=== PATIENT | male | born 1955 | race Caucasian/White ===

== ENCOUNTER 2020-09-15 07:21 | Outpatient (CLI) | payer BC, SELFPAY ==
--- NOTE | ~2020-09-15 | US_ITS ---
EXAMINATION: US abdomen complete EXAM DATE: 09/15/2020 08:37 INDICATION: Leukopenia. TECHNIQUE: Multiple grayscale and Doppler images of the complete abdomen were obtained (by a technolo gist who performed the scan) and subsequently reviewed. There is no prior study for comparison. FINDINGS: The abdominal aorta is normal in caliber. Visualized portion IVC is patent. The pancreatic head a nd body are normal in appearance. The pancreatic tail is not visualized. The liver has normal echogenicity and contour. There are no focal liver lesions identified. There is no evidence of intrahepatic biliary duct dilation. Portal venous flow was seen in the hepatopedal , normal direction and has normal Doppler waveform. Common bile duct measures 5 mm, which is normal. The gallbladder wall is normal in thickness, with ex pected amount of distention. No sonographic evidence of pericholecystic fluid. There is no cholelit hiases. Technologist performing exam reports patient did not demonstrate sonographic Mixon's sign. Please note that this sign is less reliable in patients who have received pain medication. Right kidney: There is normal contour and echogenicity. It measures 13.5 x 5.0 x 5.8 centimeters. T here is 6 mm cyst. There is no hydronephrosis. Left kidney: There is normal contour and echogenicity. It measures 15.0 x 4.7 x 6.7 centimeters. T here are no focal renal lesions identified. There is no hydronephrosis. The spleen measures 11 centimeters and is morphologically normal. IMPRESSION: 1. Unremarkable complete abdominal ultrasound exam. Reviewed, dictated and finalized at location B.
== END 2020-09-15 07:22 | disposition home or self-care (01) ==
LOC: ANHIMG 07:25
PROVIDERS: PCP Internal Medicine; Visit Provider Internal Medicine Hematology & Oncology
DX: D72.819 Decreased white blood cell count, unspecified (principal)
CPT/HCPCS: 76700

== ENCOUNTER 2021-04-20 13:31 | Outpatient (CLI) | payer BC, SELFPAY ==
[2021-04-20 13:44] LABS: Basophils Absolute Auto 0.1 K/mm3 (0.0-0.1); Basophils Percent Auto 1.9 % (0.2-1.2); Eosinophils Absolute Auto 0.2 K/mm3 (0-0.3); Eosinophils Percent Auto 5.9 % (0-4.4); Hemoglobin 14.5 g/dL (14.0-18.0); Immature Granulocyte Absolute 0.01 K/mm3 (0.00-0.031); Immature Granulocyte Percent A 0.3 % (0-0.5); Lymphocytes Absolute Auto 1.06 K/mm3 (0.9-3.2); Lymphocytes Percent Auto 28.4 % (18.3-44.2); Mean Corpuscular Hemoglobin 33.6 pg (26-34); Mean Corpuscular Volume 102.1 fl (80-100); Mean Platelet Volume 10.5 fl (7.4-10.4); Monocytes Absolute Auto 0.5 K/mm3 (0.1-0.6); Monocytes Percent Auto 12.6 % (2.6-8.5); Neutrophils Absolute Auto 1.9 K/mm3 (1.3-6.7); Neutrophils Percent Auto 50.9 % (45.5-73.1); Platelet Count Result 227 k/mm3 (150-375); Red Blood Count 4.31 M/mm3 (4.6-6.20); Red Cell Distribution Width 12.5 % (11.5-14.5); White Blood Count 3.7 K/mm3 (4.5-10.0)
== END 2021-04-20 13:32 | disposition home or self-care (01) ==
LOC: ANHLAB 13:32
PROVIDERS: PCP Internal Medicine; Visit Provider Internal Medicine Hematology & Oncology
DX: D72.819 Decreased white blood cell count, unspecified (principal)
CPT/HCPCS: 36415; 85025

== ENCOUNTER 2021-07-11 11:02 | Emergency (ER) | payer BC, SELFPAY ==
--- NOTE | ~2021-07-11 | CT_ITS ---
EXAMINATION: CT abdomen pelvis w con DATE: 07/11/2021 12:50 INDICATION: Right abdominal pain. TECHNIQUE: Computed tomography (CT) of the abdomen and pelvis was performed with 75 mL Omnipaque 300 intravenous contrast. Automated exposure control and iterative reconstruction technique were employed . The dose-length product was 782.86 mGy-cm. COMPARISON: CT abdomen and pelvis 09/21/2016 FINDINGS: The visualized portions of the lung bases demonstrate mild atelectasis. No pleural effusion . The heart size is normal. There are coronary artery calcifications. No pericardial effusion. The li roshan, gallbladder, spleen, and pancreas are normal. There are masses in the adrenal glands measuring u p to 2.1 cm on the left measuring soft tissue attenuation without change, likely adenomas. There is c ortical thinning of right kidney. There is a 5 mm cyst in right kidney. Left kidney is normal. There is a filter in the infrarenal inferior vena cava. The prostate is moderately enlarged. There are no d ilated loops of bowel. The appendix is normal. There are no pathologically enlarged lymph nodes. Ther e is a small volume of pelvic ascites. There is moderate thoracic spondylosis and severe lumbar spond ylosis. IMPRESSION: 1. Small volume of pelvic ascites. Reviewed, dictated and finalized at location A.
[2021-07-11 11:13] VITALS: BP 137/105; PULSE 73; RESP 16; TEMP 36.4; O2SAT 99
[2021-07-11 11:40] LABS: Basophils Absolute Auto 0.1 K/mm3 (0.0-0.1); Basophils Percent Auto 0.9 % (0.2-1.2); Eosinophils Absolute Auto 0.1 K/mm3 (0-0.3); Eosinophils Percent Auto 1.8 % (0-4.4); Hematocrit 43.4 % (42.0-52.0); Hemoglobin 14.6 g/dL (14.0-18.0); Immature Granulocyte Absolute 0.02 K/mm3 (0.00-0.031); Immature Granulocyte Percent A 0.4 % (0-0.5); Lymphocytes Absolute Auto 1.07 K/mm3 (0.9-3.2); Lymphocytes Percent Auto 19.6 % (18.3-44.2); Mean Corpuscular HGB Conc 33.6 g/dl (32-36); Mean Corpuscular Hemoglobin 33.3 pg (26-34); Mean Corpuscular Volume 99.1 fl (80-100); Mean Platelet Volume 10.7 fl (7.4-10.4); Monocytes Absolute Auto 0.6 K/mm3 (0.1-0.6); Monocytes Percent Auto 10.1 % (2.6-8.5); Neutrophils Absolute Auto 3.7 K/mm3 (1.3-6.7); Neutrophils Percent Auto 67.2 % (45.5-73.1); Platelet Count Result 221 k/mm3 (150-375); Red Blood Count 4.38 M/mm3 (4.6-6.20); White Blood Count 5.5 K/mm3 (4.5-10.0)
[2021-07-11 11:51] LABS: Alanine Aminotransferase 16 U/L (6-50); Albumin Level 4.3 g/dL (3.5-5.1); Alkaline Phosphatase 91 U/L (38-126); Anion Gap 7 mmol/L (8-16); Aspartate Amino Transferase 21 U/L (17-59); Bilirubin,Total 1.4 mg/dL (0.2-1.3); Blood Urea Nitrogen 21 mg/dL (9-20); Calcium 8.5 mg/dL (8.4-10.2); Carbon Dioxide 26 mmol/L (22-30); Chloride 101 mmol/L (98-107); Estimated CRCL calculation 110 ml/min; Estimated Glomerular Filt Rate > 60; Glucose 102 mg/dL (65-110); Lipase 70 U/L (23-300); Potassium 4.3 mmol/L (3.4-5.0); Sodium 134 mmol/L (137-145)
--- NOTE | 2021-07-11 12:20 | ED.ABDPAIN ---
HPI - Abdominal Pain General Chief Complaint: Abdominal Pain Stated Complaint: Abdominal Pain Time Seen by Provider: 07/11/21 12:19 Source: patient Mode of arrival: ambulatory Limitations: no limitations History of Present Illness HPI narrative: 65 years old white male presents with right abdominal pain that started 5 days ago, constant, worse with any movement, better if she remaining still. He denies any fever, chills, nausea, vomiting, diarrhea, radiation of pain. History of intermittent constipation, last bowel movement, and a small one this morning. History of abdominal hernia repair years ago.. History of hypertension, hypothyroidism, does not smoke or drink or uses drugs. Related Data Allergies Allergy/AdvReac Type Severity Reaction Status Date / Time heparin Allergy Unknown blood clot Verified 07/11/21 12:28 Heparin Analogues Allergy Unknown blood clot Verified 07/11/21 12:28 TIDE SOAP Allergy Intermediate HIVES Uncoded 07/11/21 12:28 Review of Systems Review of Systems: All systems reviewed & are unremarkable except as noted in HPI and below PMFSH Past Medical History Medical History Bradycardia DVT (deep venous thrombosis) 2004 Heparin induced thrombocytopenia Hypertension Hyponatremia Hypothyroidism KARAN (obstructive sleep apnea) Osteoarthritis Presence of IVC filter Pulmonary embolism 2004 Toe amputee Great toe 2004 Surgical History Surgical History History of surgical 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 gnosticist region 11/2020 Family History Family History Sibling Hypertension Mother Patient's mother is Blood clotting disorder Brain aneurysm Social History Social History Smoking status: Never smoker Smoking end date: 02/20/00 Alcohol intake: never Substance use: never Exam Narrative: General appearance: Well-developed, well-nourished Skin: Normal color Head: Normocephalic, nontraumatic Eyes: Clear conjunctiva ENT: Oropharynx normal, ears normal, nose normal Neck: Supple, nontender Chest and respiratory: Airway patent, no respiratory distress, no accessory muscle use Heart: Regular rate/rhythm Abdomen: Soft, severe tenderness epigastric and right upper quadrant. Quiet bowel sounds, positive guarding, no rebound Vascular: Normal peripheral pulses, normal capillary refill. Musculoskeletal: Normal range of motion, nontender back Neurologic: Alert and oriented ?3, [employer] is normal as tested, no gross motor deficit Course Course Emergency Course: Work-up did not show any significant finding to explain patient presentation. Physical exam showed quite a bit of tenderness in the epigastric area. CT scan showed masses right adrenal gland, likely adenomas. The plan to discharge patient on Bentyl and the Tylenol as needed, to follow-up with Dr. Rutledge within 7 days.. At the time of discharge patient reported that pt working alone with a lot of lifting and pushing. Abdominal wall muscular strain is a possibility at this time. Consultations Consultation #1: Dr. Ren Date: 07/11/21 Time: 13:41 Vital Signs Vital signs: Vital Signs Temperature 36.4 C L 07/11/21 11:13 Pulse Rate 73 07/11/21 11:13 Respiratory Rate 16 07/11/21 11:13 Blood Pressure 137/105 H 07/11/21 11:13 Pulse Oximetry 99 07/11/21 11:13 Temperature 36.4 C L 07/11/21 11:13 Pulse Rate 65 07/11/21 12:25 Respiratory Rate 20 07/11/21 12:25 Blood Pressure 147/83 H 07/11/21 1
[2021-07-11 12:25] VITALS: BP 147/83; PULSE 65; RESP 20; O2SAT 99
[2021-07-11 12:31] LABS: Add Urine Microscopic? NO; Appearance Urine Clear (Clear); Bilirubin Urine Negative (Negative); Blood Urine Negative (Negative); Color Urine Light Yellow (Yellow); Glucose Urine UA Negative (Negative); Ketones Urine Negative (Negative); Leukocyte Esterase Ur Negative LEU/UL (Negative); Nitrate Urine Negative (Negative); Protein Urine Negative (Negative); Urobilinogen Urine 0.2 mg/dL (<2.0); pH Urine 6.5 (5.0-9.0)
[2021-07-11] MEDS: SODIUM CHLORIDE 0.9% IV 1,000 ML 999 ML IV CONT (13:10)
[2021-07-11 14:06] VITALS: BP 146/80; PULSE 83; RESP 18; O2SAT 98
== END 2021-07-11 14:14 | disposition home or self-care (01) ==
PROVIDERS: Emergency Medicine; Emergency Provider Emergency Medicine; PCP Internal Medicine
DX: E27.9 Disorder of adrenal gland, unspecified (principal); R10.13 Epigastric pain; I10 Essential (primary) hypertension; E03.9 Hypothyroidism, unspecified; G47.33 Obstructive sleep apnea (adult) (pediatric); M19.90 Unspecified osteoarthritis, unspecified site; Z86.711 Personal history of pulmonary embolism; Z86.718 Personal history of other venous thrombosis and embolism; Z89.419 Acquired absence of unspecified great toe; Z87.891 Personal history of nicotine dependence; R18.8 Other ascites
CPT/HCPCS: 36415; 74177; 80053; 81003; 83690; 85025; 96360; 99284; J7030; Q9967

== ENCOUNTER 2021-09-12 01:59 | Day surgery (SDC) | payer BC, SELFPAY ==
[2021-08-31 11:20] VITALS: BMI 26.5
--- NOTE | 2021-09-11 11:43 | PM.HPGS ---
History of Present Illness History of Present Illness Consent: Risks, benefits, and alternatives have been discussed and questions answered. Patient agrees to proceed with procedure. Chief complaint: constipation, change in bowel habits, abdom. pain Narrative: Anil Mosquera is a 65 year old male Referred for colon cancer screening. He had 2 polyps removed at the time his last colonoscopy 11 years ago. He has also had difficulty lately of constipation, not noticing improvement with fiber or probiotics. Review of Systems Review of Systems: All systems reviewed & are unremarkable except as noted in HPI and below PMFSH Past Medical History Medical History Bradycardia DVT (deep venous thrombosis) 2004 Heparin induced thrombocytopenia Hypertension Hyponatremia Hypothyroidism KARAN (obstructive sleep apnea) Osteoarthritis Presence of IVC filter Pulmonary embolism 2004 Toe amputee Great toe 2004 Surgical History Surgical History History of surgical 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 episcopal region 11/2020 Family History Family History Sibling Hypertension Mother Patient's mother is Blood clotting disorder Brain aneurysm Social History Social History Smoking packs per day: 2 Smoking cigarettes per day: 40.0 Years smoked: 10 Smoking pack-years: 20.00 Smoking status: Former smoker Tobacco type: cigarettes Smoking end date: 02/20/00 Alcohol intake: never Substance use: never Substance use type: does not use Living arrangements: with family Spiritual care concerns: No Meds Home Medications and Allergies Home Medications Medication Instructions Recorded Confirmed Type amlodipine 10 mg tablet 10 mg PO DAILY #90 tabs 07/12/20 09/12/21 Rx levothyroxine 137 mcg tablet 137 mcg PO DAILY #90 tabs 02/01/21 09/12/21 Rx clonidine HCl 0.1 mg tablet 0.1 mg PO BID #180 tabs 04/13/21 09/12/21 Rx losartan 100 mg tablet 100 mg PO DAILY #90 tabs 04/18/21 09/12/21 Rx ascorbate calcium (vitamin C) 500 500 mg PO DAILY 08/15/21 09/12/21 History mg tablet glucosamine 500 mg-msm 500 1 tablet PO DAILY 08/15/21 09/12/21 History mg-Boswellia 33.3 mg-herb 182 70 mg tablet (Cosamin [place] (with Boswellia)) vitamin B complex (B 1 tablet PO DAILY 08/15/21 09/12/21 History Complex-Vitamin B12 tablet) Allergies Allergy/AdvReac Type Severity Reaction Status Date / Time heparin Allergy Unknown blood clot Verified 09/12/21 07:44 Heparin Analogues Allergy Unknown blood clot Verified 09/12/21 07:44 TIDE SOAP Allergy Intermediate HIVES Uncoded 09/12/21 07:44 Exam Resp: Auscultation: clear to auscultation bilaterally Cardio: Rate: regular rate Rhythm: regular rhythm GI: GI Palp: Yes Soft to palpation and No Tenderness to palpation present (GI) Assessment and Plan Assessment and plan (1) Colon cancer screening: Code(s): Z12.11 - Encounter for screening for malignant neoplasm of colon Status: Acute Assessment and Plan: Colonoscopy with possible biopsy or polypectomy or cautery or injection of substances.
[2021-09-12 07:51] VITALS: BP 143/104; PULSE 50; RESP 18; TEMP 36.3; O2SAT 99
--- NOTE | 2021-09-12 08:13 | WPDANESEPPF ---
Anes - Initial Pre Proc Eval Procedure: Operation Date: 09/12/21 08:30 Proposed Procedures p Colonoscopy - Rocky Rawls MD Date/Time: 09/12/21 08:13 Surgeon: Rocky Rawls MD Pre Op Diagnosis: constipation, change in bowel habits, abdom. pain Patient Data Age: 65 Gender: M Height: 1.93 m Weight: 94.7 kg Last Vital Signs Temp 36.3 C L 09/12/21 07:51 Pulse 50 L 09/12/21 07:51 Resp 18 09/12/21 07:51 BP 143/104 H 09/12/21 07:51 Pulse Ox 99 09/12/21 07:51 O2 Del Method Room Air 09/12/21 07:51 Allergies Allergy/AdvReac Type Severity Reaction Status Date / Time heparin Allergy Unknown blood clot Verified 09/12/21 07:44 Heparin Analogues Allergy Unknown blood clot Verified 09/12/21 07:44 TIDE SOAP Allergy Intermediate HIVES Uncoded 09/12/21 07:44 Home Medications Medication Instructions Recorded Confirmed Type amlodipine 10 mg tablet 10 mg PO DAILY #90 tabs 07/12/20 09/12/21 Rx levothyroxine 137 mcg tablet 137 mcg PO DAILY #90 tabs 02/01/21 09/12/21 Rx clonidine HCl 0.1 mg tablet 0.1 mg PO BID #180 tabs 04/13/21 09/12/21 Rx losartan 100 mg tablet 100 mg PO DAILY #90 tabs 04/18/21 09/12/21 Rx ascorbate calcium (vitamin C) 500 500 mg PO DAILY 08/15/21 09/12/21 History mg tablet glucosamine 500 mg-msm 500 1 tablet PO DAILY 08/15/21 09/12/21 History mg-Boswellia 33.3 mg-herb 182 70 mg tablet (Cosamin [place] (with Boswellia)) vitamin B complex (B 1 tablet PO DAILY 08/15/21 09/12/21 History Complex-Vitamin B12 tablet) Patient hx anesthesia problems: none Family hx anesthesia problems: none Results Review: All pre-operative results and documents have been reviewed as part of the pre-operative evaluation. FORMERLY [facility], [facility] Past Medical History Medical History Bradycardia DVT (deep venous thrombosis) 2005 Heparin induced thrombocytopenia Hypertension Hyponatremia Hypothyroidism KARAN (obstructive sleep apnea) Osteoarthritis Presence of IVC filter Pulmonary embolism 2005 Toe amputee Great toe 2005 Surgical History Surgical History History of surgical 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 oriental orthodox region 11/2020 Family History Family History Sibling Hypertension Mother Patient's mother is Blood clotting disorder Brain aneurysm Social History Social History Smoking packs per day: 2 Smoking cigarettes per day: 40.0 Years smoked: 10 Smoking pack-years: 20.00 Smoking status: Former smoker Tobacco type: cigarettes Smoking end date: 02/20/00 Alcohol intake: never Substance use: never Substance use type: does not use Living arrangements: with family Spiritual care concerns: No Anes - Eval Final PreProcedure Day of Procedure 09/12/21 08:13 Patient weight: normal Heart: regular rate and rhythm Lungs: clear to auscultation and normal air movement Airway: Mallampati scale class II Neurological: alert and oriented Last oral intake: >/= 8 hours ASA classification: III Emergent: no Anesthetic plan: proceed Anesthesia type and monitoring: general GIVS Results Review: All pre-operative results and documents have been reviewed as part of the pre-operative evaluation. Informed Consent: The patient's anesthetic plan and its attendant risks and benefits were discussed with the patient/family/POA. Questions were solicited and answers provided to the satisfaction of the patient/family/POA.
[2021-09-12] MEDS: LACTATED RINGERS 1,000 ML 150 ML IV CONT (08:24)
[2021-09-12 08:44] VITALS: BP 115/80; PULSE 67; RESP 20; O2SAT 98
[2021-09-12 08:54] VITALS: BP 128/76; PULSE 61; RESP 22; O2SAT 97
[2021-09-12 09:04] VITALS: BP 131/82; PULSE 60; RESP 20; O2SAT 98
== END 2021-09-12 09:10 | disposition home or self-care (01) ==
PROVIDERS: PCP Internal Medicine; Visit Provider Internal Medicine Gastroenterology
PROC: 0DJD8ZZ Inspection of Lower Intestinal Tract, Via Natural or Artificial Opening Endoscopic (ICD-10-PCS; CPT 45378; principal; 2021-09-12 08:30)
DX: Z12.11 Encounter for screening for malignant neoplasm of colon (principal); K59.00 Constipation, unspecified; R19.5 Other fecal abnormalities; R10.9 Unspecified abdominal pain; E03.9 Hypothyroidism, unspecified; Z86.718 Personal history of other venous thrombosis and embolism; I10 Essential (primary) hypertension; G47.33 Obstructive sleep apnea (adult) (pediatric); Z86.711 Personal history of pulmonary embolism; M19.90 Unspecified osteoarthritis, unspecified site; R00.1 Bradycardia, unspecified; Z87.891 Personal history of nicotine dependence; Z51.81 Encounter for therapeutic drug level monitoring; Z79.4 Long term (current) use of insulin
CPT/HCPCS: 45378; J2704; J7120

== ENCOUNTER 2022-11-03 13:53 | Outpatient (CLI) | payer BC, SELFPAY ==
--- NOTE | ~2022-11-03 | XR_ITS ---
EXAMINATION: XR chest 2V 11/03/2022 14:16 INDICATION: Syndrome of inappropriate secretion of antidiuretic hormone PROCEDURE: 2 view chest COMPARISON: 06/04/2004 FINDINGS: The lungs are clear. The cardiomediastinal silhouette is within normal limits. There are no pleural effusions. There is no pneumothorax suspected. IMPRESSION: 1: NO ACUTE CARDIOPULMONARY DISEASE. Reviewed, dictated and finalized at location B.
== END 2022-11-03 13:54 | disposition home or self-care (01) ==
PROVIDERS: PCP Internal Medicine; Visit Provider Internal Medicine
DX: E22.2 Syndrome of inappropriate secretion of antidiuretic hormone (principal)
CPT/HCPCS: 71046

== ENCOUNTER 2023-10-08 08:50 | Outpatient (CLI) | payer OTHER, SELFPAY ==
--- NOTE | ~2023-10-08 | XR_ITS ---
EXAMINATION: XR knee LT min 4V DATE: 10/08/2023 09:10 INDICATION: Left knee pain. TECHNIQUE: 4 views of left knee were obtained. COMPARISON: None. FINDINGS: There is varus angulation at the knee. No fracture. There is severe osteoarthritis of media l compartment and moderate osteoarthritis of lateral and patellofemoral compartments. No knee joint e ffusion. IMPRESSION: 1. Severe left knee osteoarthritis. Reviewed, dictated and finalized at location A.
== END 2023-10-08 08:51 ==
PROVIDERS: PCP Internal Medicine; Visit Provider Clinical Nurse Specialist
DX: M17.12 Unilateral primary osteoarthritis, left knee (principal)
CPT/HCPCS: 73564

== ENCOUNTER 2023-11-22 11:03 | Outpatient (CLI) | payer OTHER, SELFPAY ==
[2023-11-22 18:55] LABS: Basophils Absolute Auto 0.1 K/mm3 (0.0-0.1); Basophils Percent Auto 1.2 % (0.2-1.2); Eosinophils Absolute Auto 0.1 K/mm3 (0-0.3); Eosinophils Percent Auto 3.1 % (0-4.4); Hematocrit 43.5 % (42.0-52.0); Hemoglobin 14.8 g/dL (14.0-18.0); Immature Granulocyte Absolute 0.01 K/mm3 (0.00-0.031); Immature Granulocyte Percent A 0.2 % (0-0.5); Lymphocytes Absolute Auto 0.96 K/mm3 (0.9-3.2); Lymphocytes Percent Auto 22.7 % (18.3-44.2); Mean Corpuscular Hemoglobin 33.5 pg (26-34); Mean Corpuscular Volume 98.4 fl (80-100); Mean Platelet Volume 11.5 fl (7.4-10.4); Monocytes Absolute Auto 0.6 K/mm3 (0.1-0.6); Monocytes Percent Auto 14.2 % (2.6-8.5); Neutrophils Absolute Auto 2.5 K/mm3 (1.3-6.7); Neutrophils Percent Auto 58.6 % (45.5-73.1); Platelet Count Result 202 k/mm3 (150-375); Red Blood Count 4.42 M/mm3 (4.6-6.20); Red Cell Distribution Width 12.2 % (11.5-14.5); White Blood Count 4.2 K/mm3 (4.5-10.0)
[2023-11-22 19:23] LABS: Alanine Aminotransferase 20 U/L (6-50); Albumin Level 4.2 g/dL (3.5-5.1); Alkaline Phosphatase 88 U/L (38-126); Anion Gap 7 mmol/L (4-12); Aspartate Amino Transferase 30 U/L (17-59); Bilirubin,Total 1.5 mg/dL (0.2-1.3); Blood Urea Nitrogen 19 mg/dL (9-20); Carbon Dioxide 27 mmol/L (22-30); Chloride 100 mmol/L (98-107); Estimated Glomerular Filt Rate > 60; Glucose 95 mg/dL (65-110); Potassium 4.2 mmol/L (3.4-5.0); Sodium 134 mmol/L (137-145)
[2023-11-22 21:00] LABS: Free T4 Free Thyroxine 1.48 ng/mL (0.78-2.19)
== END 2023-11-22 11:04 | disposition home or self-care (01) ==
LOC: ANHGOSHLAB 11:04
PROVIDERS: PCP Internal Medicine; Visit Provider Clinical Nurse Specialist
DX: D72.819 Decreased white blood cell count, unspecified (principal); E03.9 Hypothyroidism, unspecified; E78.5 Hyperlipidemia, unspecified; I10 Essential (primary) hypertension; E87.1 Hypo-osmolality and hyponatremia
CPT/HCPCS: 36415; 80053; 84439; 84443; 85025